=== PATIENT | male | born 1995 | race Two or more races ===

== ENCOUNTER 2020-11-10 20:43 | Emergency (ER) | payer SELFPAY ==
[~2020-11-10] VITALS: Ht 177.8 cm; Wt 77.1 kg
[2020-11-11 01:16] VITALS: BP 108/54
== END 2020-11-11 02:30 | disposition home or self-care (01) ==
LOC: ER 20:47
DX: S09.8XXA Other specified injuries of head, initial encounter (principal); F12.10 Cannabis abuse, uncomplicated; W18.00XA Striking against unspecified object with subsequent fall, initial encounter; Y93.89 Activity, other specified; Y92.89 Other specified places as the place of occurrence of the external cause; Y99.8 Other external cause status
CPT/HCPCS: 70450; 70486